=== PATIENT | male | born 1965 | race Caucasian/White ===

== ENCOUNTER 2024-11-27 19:44 | Emergency (ER) | payer BC ==
[2024-11-27] MEDS: Fluorescein 1 MG Ophth Strip EYELF ONE (20:45)
[2024-11-27 21:02] VITALS: BP 129/86; PULSE 64
== END 2024-11-27 21:18 | disposition home or self-care (01) ==
LOC: JD.ED 19:44
DX: S05.01XA Injury of conjunctiva and corneal abrasion without foreign body, right eye, initial encounter (principal); I10 Essential (primary) hypertension; E66.9 Obesity, unspecified; Z79.899 Other long term (current) drug therapy; Z86.16 Personal history of COVID-19; H10.9 Unspecified conjunctivitis; W45.8XXA Other foreign body or object entering through skin, initial encounter
CPT/HCPCS: 99283; A9270; J3490